=== PATIENT | female | born 1965 | race Caucasian/White ===

== ENCOUNTER → 2017-08-24 | Outpatient (CLI) | payer BC ==
--- NOTE | 2017-08-24 15:15 | REPMRS ---
Patient History The patient states she had a clinical breast exam in 08/2017. Family history of prostate cancer in father at age 50 or over. Taking hormonal contraceptives for 28 years. Digital Woman Screen Mammo: August 24, 2017 - Exam #: [id number] Bilateral CC and MLO view(s) were taken. Technologist: Celeste Grant, Technologist Prior study comparison: June 30, 2016, digital woman screen mammo performed at [facility]. October 03, 2014, digital woman screen mammo performed at [facility]. FINDINGS: There are scattered fibroglandular densities. There is a fairly symmetric fibroglandular pattern in both breasts. There has been no interval development of masses, areas of architectural distortion or clusters of microcalcifications typical of malignancy. ASSESSMENT: BI-RADS/ACR category 2 mammogram. Benign finding(s). Recommendation Routine screening mammogram of both breasts in 1 year (for women over age 40). This mammogram was interpreted with the aid of an FDA-approved computer-aided dectection system. Electronically Signed By: Devonte Anderson MD 08/24/17 [id number]
== END ==
LOC: M WHC 13:14
PROVIDERS: ATTEND Nurse Practitioner Women's Health
DX: Z12.31 Encounter for screening mammogram for malignant neoplasm of breast (principal); Z79.3 Long term (current) use of hormonal contraceptives

== ENCOUNTER → 2017-08-24 | Outpatient (REF) | payer BC | LOC: M SFHCWAGY 14:49 | PROVIDERS: ATTEND Nurse Practitioner Women's Health | DX: Z12.4 Encounter for screening for malignant neoplasm of cervix (principal); N76.0 Acute vaginitis ==

== ENCOUNTER → 2018-06-25 | Outpatient (REF) | payer BC, OTHER | LOC: M LAB REF 17:46 | DX: J02.9 Acute pharyngitis, unspecified (principal) | CPT/HCPCS: 87081 ==

== ENCOUNTER → 2018-09-22 | Outpatient (CLI) | payer OTHER ==
--- NOTE | 2018-09-22 18:07 | REPMRS ---
Patient History The patient states she had a clinical breast exam in 09/2018. Family history of prostate cancer at age 50 or over in father. Taking hormonal contraceptives for 29 years. Digital Woman Screen Mammo: September 22, 2018 - Exam #: [id number] Bilateral CC and MLO view(s) were taken. Technologist: Celeste Grant, Technologist Prior study comparison: August 24, 2017, digital woman screen mammo performed at [facility]. June 30, 2016, digital woman screen mammo performed at [facility]. October 03, 2014, digital woman screen mammo performed at [facility]. FINDINGS: There are scattered fibroglandular densities. There is a benign stable mixed density nodule at 6 o'clock in the right breast unchanged from multiple prior studies. There has been no change in the appearance of the mammogram from the prior studies. There is a mild amount of scattered fibroglandular density which is fairly symmetric. There is no interval development of dominant mass, architectural distortion, or clustered microcalcification suggestive of malignancy. 3-D tomosynthesis shows no additional findings. Assessment: BI-RADS/ACR category 2 mammogram. Benign finding(s). Recommendation Routine screening mammogram of both breasts in 1 year (for women over age 40). This patient's Lifetime Breast Cancer RIsk is estimated at 11.0 %. This mammogram was interpreted with the aid of an FDA-approved computer-aided dectection system. Electronically Signed By: Yossi Moran MD 09/22/18 [id number]
== END ==
LOC: M WHC 14:40
PROVIDERS: ATTEND Nurse Practitioner Women's Health
DX: Z12.31 Encounter for screening mammogram for malignant neoplasm of breast (principal)

== ENCOUNTER → 2019-10-29 | Outpatient (CLI) | payer BC, OTHER ==
--- NOTE | 2019-10-29 15:14 | REPMRS ---
Patient History The patient states she had a clinical breast exam in October 2019. Family history of prostate cancer at age 50 or over in father. Taking hormonal contraceptives for 29 years. Digital Woman Screen Mammo: October 29, 2019 - Exam #: [id number] Bilateral CC and MLO view(s) were taken. Technologist: Pham Vasquez, Technologist Prior study comparison: September 22, 2018, bilateral digital woman screen mammo performed at [facility]. August 24, 2017, digital woman screen mammo performed at [facility]. June 30, 2016, digital woman screen mammo performed at [facility]. FINDINGS: There are scattered fibroglandular densities. There has been no change in the appearance of the mammogram from the prior studies. There is a mild amount of scattered fibroglandular density which is fairly symmetric. There is no interval development of dominant mass, architectural distortion, or grouped microcalcification suggestive of malignancy. 3-D tomosynthesis shows no additional findings. Assessment: BI-RADS/ACR category 1 mammogram. Negative Mammogram. Recommendation Routine screening mammogram of both breasts in 1 year (for women over age 40). This patient's Lifetime Breast Cancer Risk is estimated at 10.8 %. This mammogram was interpreted with the aid of an FDA-approved computer-aided dectection system. Electronically Signed By: Yossi Moran MD 10/29/19 [id number]
== END ==
LOC: M WHC 13:51
PROVIDERS: ATTEND Nurse Practitioner Family
DX: Z12.31 Encounter for screening mammogram for malignant neoplasm of breast (principal)

== ENCOUNTER → 2019-10-29 | Outpatient (REF) | payer BC | LOC: M SFHCWAGY 17:26 | PROVIDERS: ATTEND Nurse Practitioner Family | DX: Z12.4 Encounter for screening for malignant neoplasm of cervix (principal) | CPT/HCPCS: 87624; G0123 ==

== ENCOUNTER → 2020-11-26 | Outpatient (CLI) | payer OTHER ==
--- NOTE | 2020-11-26 17:21 | REPMRS ---
Patient History The patient states she had a clinical breast exam in 11/2020 Patient is postmenopausal. Family history of prostate cancer at age 50 or over in father. Took hormonal contraceptives for 29 years. Digital Woman Screen Mammo: November 26, 2020 - Exam #: [id number] Bilateral CC and MLO view(s) were taken. Technologist: Anamaria Emery, Technologist Prior study comparison: October 29, 2019, bilateral digital woman screen mammo performed at [facility]. September 22, 2018, bilateral digital woman screen mammo performed at [facility]. August 24, 2017, digital woman screen mammo performed at [facility]. FINDINGS: The breast tissue is almost entirely fat. The Volpara volumetric breast density category is: A. There are benign stable lymph nodes visible bilaterally. There has been no change in the appearance of the mammogram from the prior studies. There is no interval development of dominant mass, architectural distortion, or grouped microcalcification typical of malignancy. 3-D tomosynthesis shows no additional findings. Assessment: BI-RADS/ACR category 2 mammogram. Benign Findings. Recommendation Routine screening mammogram of both breasts in 1 year (for women over age 40). This patient's [facility] Lifetime Breast Cancer RIsk is estimated at 12.2 %. This mammogram was interpreted with the aid of an FDA-approved computer-aided dectection system. Electronically Signed By: Yossi Moran MD 11/26/20 [id number]
== END ==
LOC: M WHC 15:10
PROVIDERS: ATTEND Nurse Practitioner Women's Health
DX: Z12.31 Encounter for screening mammogram for malignant neoplasm of breast (principal); Z92.0 Personal history of contraception

== ENCOUNTER → 2022-01-12 | Outpatient (REF) | payer OTHER | LOC: M SFHCWAGY 18:30 | PROVIDERS: ATTEND Specialist | DX: Z01.419 Encounter for gynecological examination (general) (routine) without abnormal findings (principal) ==

== ENCOUNTER → 2022-01-12 | Outpatient (CLI) | payer OTHER | LOC: M WHC 14:30 | PROVIDERS: ATTEND Specialist | DX: Z12.31 Encounter for screening mammogram for malignant neoplasm of breast (principal) ==

== ENCOUNTER → 2023-03-09 | Outpatient (REF) | payer BC | LOC: M SFHCWAGY 15:33 | PROVIDERS: ATTEND Nurse Practitioner Family | DX: Z12.4 Encounter for screening for malignant neoplasm of cervix (principal) | CPT/HCPCS: 87624; G0123 ==

== ENCOUNTER → 2023-03-09 | Outpatient (CLI) | payer BC, OTHER | LOC: M WHC 10:29 | PROVIDERS: ATTEND Nurse Practitioner Family | DX: Z12.31 Encounter for screening mammogram for malignant neoplasm of breast (principal) ==

== ENCOUNTER → 2023-11-28 | Outpatient (CLI) | payer BC ==
[2023-11-28 17:17] LABS: HEMATOCRIT 42.3 % (36.0-47.0); HEMOGLOBIN 13.9 g/dl (12.0-15.5); MEAN CORPUSCULAR HEMOGLOBIN 30.8 pg (27.0-33.0); MEAN CORPUSCULAR HGB CONC 32.9 g/dl (32.0-36.5); MEAN CORPUSCULAR VOLUME 93.8 fl (80.0-96.0); PLATELET COUNT, AUTOMATED 389 10^3/uL (150-450); RED BLOOD COUNT 4.51 10^6/uL (4.00-5.40); WHITE BLOOD COUNT 8.7 10^3/uL (4.0-10.0)
[2023-11-28 17:36] LABS: ALBUMIN 4.2 G/DL (3.2-5.2); ALKALINE PHOSPHATASE 96 U/L (46-116); ALT/SGPT 25 U/L (7.0-40); AST/SGOT 13 U/L (<34); BILIRUBIN,TOTAL 0.5 MG/DL (0.3-1.2); BLOOD UREA NITROGEN 19 MG/DL (9-23); CALCIUM LEVEL 9.3 MG/DL (8.5-10.1); CARBON DIOXIDE LEVEL 28 MMOL/L (20-31); CHLORIDE LEVEL 105 MMOL/L (98-107); CHOLESTEROL LEVEL 219 MG/DL (<200); CREATININE FOR GFR 0.59 MG/DL (0.55-1.30); GLOMERULAR FILTRATION RATE > 60.0 (>51); GLUCOSE, FASTING 103 MG/DL (60-100); HDL CHOLESTEROL 78.2 MG/DL (>40); LDL CHOLESTEROL 120.6 MG/DL (<100); NON-HDL-C 140.8 MG/DL; POTASSIUM SERUM 4.3 MMOL/L (3.5-5.1); SODIUM LEVEL 138 MMOL/L (136-145); TOTAL PROTEIN 7.5 G/DL (5.7-8.2); TRIGLYCERIDES LEVEL 101 MG/DL (<150)
[2023-11-28 17:38] LABS: THYROID STIMULATING HORMONE 1.947 uIU/ML (0.55-4.78)
== END ==
LOC: M WUC 13:54
PROVIDERS: ATTEND Physician Assistant
DX: E78.5 Hyperlipidemia, unspecified (principal); D64.9 Anemia, unspecified

== ENCOUNTER → 2024-05-16 | Outpatient (REF) | payer BC ==
[2024-05-19 13:46] LABS: HPV APTIMA Not Detected (Not Detected)
== END ==
LOC: M SFHCWAGY 11:05
PROVIDERS: ATTEND Nurse Practitioner Family
DX: Z12.4 Encounter for screening for malignant neoplasm of cervix (principal)
CPT/HCPCS: 87624; G0123

== ENCOUNTER → 2024-05-16 | Outpatient (CLI) | payer BC | LOC: M WHC 14:33 | PROVIDERS: ATTEND Nurse Practitioner Family | DX: Z12.31 Encounter for screening mammogram for malignant neoplasm of breast (principal); R92.313 Mammographic fatty tissue density, bilateral breasts ==

== ENCOUNTER → 2024-07-11 | Outpatient (CLI) | payer BC | LOC: M WUC 14:23 | PROVIDERS: ATTEND Physician Assistant | DX: R05.3 Chronic cough (principal) ==

== ENCOUNTER → 2025-07-19 | Outpatient (REF) | payer BC ==
[2025-07-23 14:15] LABS: HPV APTIMA Not Detected (Not Detected)
== END ==
LOC: M SFHCWAGY 15:23
PROVIDERS: ATTEND Student in an Organized Health Care Education/Training Program
DX: Z12.4 Encounter for screening for malignant neoplasm of cervix (principal); Z77.9 Other contact with and (suspected) exposures hazardous to health
CPT/HCPCS: 87624; G0123

== ENCOUNTER → 2025-07-19 | Outpatient (CLI) | payer BC | LOC: M WHC 12:49 | PROVIDERS: ATTEND Student in an Organized Health Care Education/Training Program | DX: Z12.31 Encounter for screening mammogram for malignant neoplasm of breast (principal); R92.313 Mammographic fatty tissue density, bilateral breasts | CPT/HCPCS: 77063; 77067; 87624; G0123 ==